=== PATIENT | female | born 1955 | race African-American/Black ===

== ENCOUNTER 2017-03-30 07:25 | Emergency (ER) | payer MEDICARE, MEDICAID ==
[~2017-03-30] VITALS: Ht 167.6 cm; Wt 103.0 kg
[~2017-03-30 07:25] MED LIST: ALLO300T2; GABA300C; GLYB5TAB4; OMEG1CAP17; SITA100T11; VALS40TA4
[2017-03-30] MEDS ORDERED: OXYCODONE HCL/ACETAMINOPHEN 5/325MG TABLET PO ONE (10:00)
[2017-03-30 11:22] VITALS: BP 132/79
== END 2017-03-30 13:56 | disposition home or self-care (01) ==
LOC: ER 07:25
DX: S40.012A Contusion of left shoulder, initial encounter (principal); S80.12XA Contusion of left lower leg, initial encounter; S10.93XA Contusion of unspecified part of neck, initial encounter; J44.9 Chronic obstructive pulmonary disease, unspecified; I10 Essential (primary) hypertension; E11.9 Type 2 diabetes mellitus without complications; J45.909 Unspecified asthma, uncomplicated; Y93.39 Activity, other involving climbing, rappelling and jumping off; Y93.89 Activity, other specified; Y92.89 Other specified places as the place of occurrence of the external cause; Y99.8 Other external cause status
CPT/HCPCS: 72125; 72170; 73030; 73552; 99284

== ENCOUNTER 2019-04-28 01:21 | Emergency (ER) | payer MEDICARE, MEDICAID ==
[~2019-04-28] VITALS: Ht 188 cm; Wt 130.9 kg
[2019-04-28 02:25] LABS: BASOPHILS % 0.9 % (0.0-2.0); EOSINOPHILS % 1.3 % (0.0-5.0); HEMATOCRIT. 35.3 % (36.0-48.0); LYMPHOCYTES % 27.1 % (20.0-50.0); MEAN CORPUSCULAR HEMOGLOBIN 30.9 pg (28.0-32.0); MEAN CORPUSCULAR VOLUME 91.2 fL (81.0-99.0); MEAN PLATELET VOLUME 10.4 fl (7.4-10.4); MONOCYTES % 11.1 % (2.0-8.0); NEUTROPHILS % 59.6 % (40.0-76.0); PLATELET 145 x1000/uL (130-400); RED BLOOD CELL COUNT 3.87 mill/uL (4.2-5.4); RED CELL DISTRIBUTION WIDTH 15.2 % (11.6-14.6)
[2019-04-28 02:31] LABS: CHLORIDE 103 mEq/L (98-107)
[2019-04-28 04:10] VITALS: BP 158/80
== END 2019-04-28 04:27 | disposition home or self-care (01) ==
LOC: ER 01:21
DX: T83.032A Leakage of nephrostomy catheter, initial encounter (principal); I12.0 Hypertensive chronic kidney disease with stage 5 chronic kidney disease or end stage renal disease; E11.22 Type 2 diabetes mellitus with diabetic chronic kidney disease; N18.6 End stage renal disease; M19.90 Unspecified osteoarthritis, unspecified site; Z99.2 Dependence on renal dialysis; Z87.891 Personal history of nicotine dependence; Z79.899 Other long term (current) drug therapy; Z79.84 Long term (current) use of oral hypoglycemic drugs
CPT/HCPCS: 36415; 74176; 83605; 99284

== ENCOUNTER 2019-08-05 12:51 | Inpatient (IN) | payer MEDICARE, MEDICAID ==
[~2019-08-05] VITALS: Ht 190.5 cm; Wt 126.6 kg
[2019-08-05] MEDS ORDERED: ALBUTEROL (0.083%) 2.5MG/3ML NEB HHN STA (13:41)
[2019-08-05] MEDS ORDERED: METHYLPREDNISOLONE SOD SUCC 125 MG/2 ML VIAL IV STA (13:41)
[2019-08-05] MEDS ORDERED: IPRATROPIUM BROMIDE (0.02%) 0.5MG/2.5ML NEB HHN STA (13:41)
[2019-08-05 14:39] LABS: HEMATOCRIT. 33.3 % (36.0-48.0); HEMOGLOBIN. 11.2 g/dL (12.0-16.0); MEAN CORPUSCULAR HEMOGLOBIN 31.8 pg (28.0-32.0); MEAN CORPUSCULAR VOLUME 94.4 fL (81.0-99.0); MEAN PLATELET VOLUME 10.8 fl (7.4-10.4); PLATELET 152 x1000/uL (130-400); RED BLOOD CELL COUNT 3.53 mill/uL (4.2-5.4)
[2019-08-05 14:45] LABS: CHLORIDE 103 mEq/L (98-107)
[2019-08-05 14:57] LABS: PLATELET ESTIMATE NORMAL
[2019-08-05] MEDS ORDERED: ASPIRIN 325MG EC TABLET PO NR (17:00)
[2019-08-05] MEDS ORDERED: ONDANSETRON HCL 4MG/2ML INJ IV PRN (17:15)
[2019-08-05] MEDS ORDERED: DOXYCYCLINE 100 MG in DEXT 5% WATER 100 ML IV NR (17:30)
[2019-08-05] MEDS ORDERED: METHYLPREDNISOLONE SOD SUCC 125 MG/2 ML VIAL IV NR (17:30)
[2019-08-05] MEDS: GUAIFENESIN 200MG/10ML SUGAR FREE UDC PO PRN (19:03)
[2019-08-05] MEDS: CLONIDINE 0.1MG TABLET PO PRN (20:17)
[2019-08-05] MEDS: ACETAMINOPHEN 325MG TABLET PO PRN (20:17)
[2019-08-05] MEDS: IPRATROPIUM/ALBUTEROL 0.5-3(2.5)MG/3ML NEB NEB SCH (20:30)
[2019-08-06] VITALS (8 sets, daily range): BP systolic 106–190; BP diastolic 57–109
[2019-08-06] MEDS: IPRATROPIUM/ALBUTEROL 0.5-3(2.5)MG/3ML NEB NEB SCH ×7 (01:54→23:17)
[2019-08-06] MEDS: METHYLPREDNISOLONE SOD SUCC 125 MG/2 ML VIAL IV SCH ×3 (01:54→12:47)
[2019-08-06] MEDS: GUAIFENESIN 200MG/10ML SUGAR FREE UDC PO PRN ×2 (01:58→13:15)
[2019-08-06] MEDS: CLONIDINE 0.1MG TABLET PO PRN (01:59)
[2019-08-06] MEDS: HYDROCODONE/ACETAMINOPHEN 5/325MG TABLET PO PRN ×2 (01:59→17:13)
[2019-08-06] MEDS ORDERED: DEXTROSE 50% WATER 50ML SYRINGE IV PRN (02:00)
[2019-08-06] MEDS ORDERED: ERGO2000 PO (02:28)
[2019-08-06] MEDS ORDERED: CARV25TA47 PO (02:28)
[2019-08-06] MEDS ORDERED: AMLO5TAB88 PO (02:28)
[2019-08-06] MEDS ORDERED: ROSU20TA2 PO (02:28)
[2019-08-06] MEDS ORDERED: FEBU40TA PO (02:28)
[2019-08-06] MEDS ORDERED: ASPI-1497 PO (02:28)
[2019-08-06] MEDS ORDERED: ESCI20TA43 PO (02:28)
[2019-08-06] MEDS ORDERED: AMLO10TA80 PO (02:28)
[2019-08-06] MEDS ORDERED: PANT40TA4 PO (02:28)
[2019-08-06] MEDS ORDERED: DOXYCYCLINE 100 MG in DEXT 5% WATER 100 ML IV SCH (05:00)
[2019-08-06] MEDS: ACETAMINOPHEN 325MG TABLET PO PRN (05:27)
[2019-08-06] MEDS: BLOOD SUGAR DIAGNOSTIC STRIP TEST SCH ×4 (06:21→21:00)
[2019-08-06] MEDS: AMLODIPINE 10MG TABLET PO SCH (06:45)
[2019-08-06 07:24] LABS: BASOPHILS % 0.2 % (0.0-2.0); HEMATOCRIT. 31.6 % (36.0-48.0); HEMOGLOBIN. 10.8 g/dL (12.0-16.0); MEAN CORPUSCULAR HEMOGLOBIN 32.2 pg (28.0-32.0); MEAN CORPUSCULAR VOLUME 94.3 fL (81.0-99.0); MEAN PLATELET VOLUME 11.3 fl (7.4-10.4); MONOCYTES % 2.2 % (2.0-8.0); NEUTROPHILS % 86.6 % (40.0-76.0); PLATELET 146 x1000/uL (130-400); RED BLOOD CELL COUNT 3.35 mill/uL (4.2-5.4); RED CELL DISTRIBUTION WIDTH 14.8 % (11.6-14.6)
[2019-08-06 07:58] LABS: CHLORIDE 102 mEq/L (98-107)
[2019-08-06 08:35] LABS: BG BASE EXCESS -6.5 mmol/L (-2.0-2.0); BG CARBOXYHEMOGLOBIN 0.3 % (0.5-1.5); BG DEOXYHEMOGLOBIN 8.6 % (0.0-5.0); BG FRACTION INSPIRED OXYGEN 21; BG HCO3 ACT 18.6 mmol/L (22.0-26.0); BG METHEMOGLOBIN 0.3 % (0.0-1.5); BG OXYGEN SATURATION 91.3 % (92.0-98.5); BG OXYHEMOGLOBIN 90.8 % (94.0-97.0); BG PCO2 35.7 mmHg (35.0-45.0); BG PH 7.335 (7.350-7.450); BG PO2 67.6 mmHg (75.0-100.0); BG SAMPLE SITE RIGHT RADIAL; BG TOTAL HEMOGLOBIN 10.6 g/dL (12.0-18.0); BG VENT MODE ROOM AIR
[2019-08-06] MEDS ORDERED: SODIUM BICARBONATE 8.4% 1 MEQ/ML 50ML SYR IV NR (08:50)
[2019-08-06] MEDS ORDERED: AMLODIPINE 5MG TABLET PO SCH (09:00)
[2019-08-06] MEDS: CARVEDILOL 12.5MG TABLET PO SCH ×2 (09:00→20:44)
[2019-08-06] MEDS: HEPARIN 5000 UNITS/ML VIAL SUBCUT SCH ×2 (09:24→20:43)
[2019-08-06] MEDS: INSULIN LISPRO 100 UNITS/ML SUBCUT SCH ×4 (09:26→22:45)
[2019-08-06] MEDS ORDERED: DEXTROSE 50% WATER 50ML SYRINGE IV NR (09:30)
[2019-08-06] MEDS ORDERED: INSULIN REGULAR (HUMULIN R) UD 100 UNITS/ML SYR IV NR (10:00)
[2019-08-06] MEDS ORDERED: PNEUMOCOCCAL 23-VAL P-SAC VAC 0.5 ML IM ONE (12:00)
[2019-08-06] MEDS ORDERED: SODIUM BICARBONATE 8.4% 1 MEQ/ML 50ML SYR IV ONE (12:38)
[2019-08-06] MEDS: ASPIRIN 81MG EC TABLET PO SCH (12:46)
[2019-08-06] MEDS: PANTOPRAZOLE 40MG DR TABLET PO SCH (12:46)
[2019-08-06 15:33] LABS: INR 0.9; PARTIAL THROMBOPLASTIN TIME 27.7 sec (23.4-31.0); PROTHROMBIN TIME 10.1 sec (9.6-11.0)
[2019-08-06] MEDS: BENZONATATE 100MG CAPSULE PO PRN ×2 (16:54→20:43)
[2019-08-06] MEDS: MONTELUKAST SODIUM 10MG TABLET PO SCH ×2 (16:54→17:00)
[2019-08-06] MEDS: FLUTICASONE PROPIONATE 50MCG/SPRAY BOTTLE BOTHNSTRLS SCH ×2 (16:54→20:45)
[2019-08-06] MEDS: METHYLPREDNISOLONE SOD SUCC 40 MG/ML VIAL IV SCH ×2 (16:54→23:45)
[2019-08-06] MEDS: GUAIFENESIN/DM 600MG/30MG ER TAB 12HR PO PRN (20:43)
[2019-08-06] MEDS: DOXYCYCLINE 100 MG in DEXT 5% WATER 100 ML IV SCH (20:44)
[2019-08-06] MEDS: AMLODIPINE 5MG TABLET PO SCH (20:45)
[2019-08-07] MEDS: IPRATROPIUM/ALBUTEROL 0.5-3(2.5)MG/3ML NEB NEB SCH ×5 (03:18→21:27)
[2019-08-07 04:04] VITALS: BP 140/58
[2019-08-07] MEDS: BLOOD SUGAR DIAGNOSTIC STRIP TEST SCH ×4 (06:55→21:46)
[2019-08-07] MEDS: PANTOPRAZOLE 40MG DR TABLET PO SCH (06:59)
[2019-08-07] MEDS ORDERED: LIDOCAINE HCL 1% 20ML VIAL (Pyxis) INJ ONE (07:47)
[2019-08-07] MEDS ORDERED: SODIUM BICARBONATE 4% (2.4MEQ) 5ML VIAL IV ONE (07:47)
[2019-08-07 08:00] VITALS: BP 163/60
[2019-08-07] MEDS: HEPARIN 5000 UNITS/ML VIAL SUBCUT SCH ×2 (09:00→21:46)
[2019-08-07] MEDS: GUAIFENESIN/DM 600MG/30MG ER TAB 12HR PO PRN ×2 (09:13→21:45)
[2019-08-07] MEDS: CARVEDILOL 12.5MG TABLET PO SCH ×2 (09:14→21:45)
[2019-08-07] MEDS: CLONIDINE 0.1MG TABLET PO PRN (09:14)
[2019-08-07] MEDS: ASPIRIN 81MG EC TABLET PO SCH (09:14)
[2019-08-07] MEDS: METHYLPREDNISOLONE SOD SUCC 40 MG/ML VIAL IV SCH ×2 (09:14→17:47)
[2019-08-07] MEDS: AMLODIPINE 10MG TABLET PO SCH (09:14)
[2019-08-07] MEDS: FLUTICASONE PROPIONATE 50MCG/SPRAY BOTTLE BOTHNSTRLS SCH (09:15)
[2019-08-07] MEDS: DOXYCYCLINE 100 MG in DEXT 5% WATER 100 ML IV SCH ×2 (09:16→21:44)
[2019-08-07] MEDS: INSULIN LISPRO 100 UNITS/ML SUBCUT SCH ×4 (09:29→21:55)
[2019-08-07] MEDS ORDERED: ALBU18HF2 IH (10:24)
[2019-08-07] MEDS ORDERED: GUAI-741 PO (10:24)
[2019-08-07] MEDS ORDERED: DOXY100C2 MT (10:24)
[2019-08-07] MEDS ORDERED: MONT10TA21 PO (10:24)
[2019-08-07] MEDS ORDERED: P50 MT (10:24)
[2019-08-07] MEDS ORDERED: UMEC62.5 INH (10:24)
[2019-08-07 12:13] VITALS: BP 126/49
[2019-08-07 12:43] LABS: HEMATOCRIT 30.9 % (36.0-48.0); HEMOGLOBIN 10.6 g/dL (12.0-16.0); MEAN CORPUSCULAR HEMOGLOBIN 31.7 pg (28.0-32.0); MEAN CORPUSCULAR VOLUME 92.8 fL (81.0-99.0); PLATELET 148 x1000/uL (130-400); RED BLOOD CELL COUNT 3.33 mill/uL (4.2-5.4); RED CELL DISTRIBUTION WIDTH 14.6 % (11.6-14.6)
[2019-08-07] MEDS: BENZONATATE 100MG CAPSULE PO PRN (15:01)
[2019-08-07] MEDS: GABAPENTIN 300MG CAPSULE PO SCH ×2 (15:01→21:44)
[2019-08-07 16:12] VITALS: BP 130/59
[2019-08-07] MEDS: MONTELUKAST SODIUM 10MG TABLET PO SCH (17:47)
[2019-08-07] MEDS: LORATADINE 10MG TABLET PO SCH (17:47)
[2019-08-07] MEDS: SODIUM CHLORIDE 45ML SPRAY NS PRN (17:54)
[2019-08-07 20:32] VITALS: BP 116/63
[2019-08-07] MEDS: BUDESONIDE 0.5MG/2ML NEB HHN SCH (21:27)
[2019-08-07] MEDS: AMLODIPINE 5MG TABLET PO SCH (21:45)
[2019-08-07] MEDS: HYDROCODONE/ACETAMINOPHEN 5/325MG TABLET PO PRN (21:46)
[2019-08-08 00:11] VITALS: BP 124/58
[2019-08-08] MEDS: IPRATROPIUM/ALBUTEROL 0.5-3(2.5)MG/3ML NEB NEB SCH ×6 (00:33→21:11)
[2019-08-08] MEDS: METHYLPREDNISOLONE SOD SUCC 40 MG/ML VIAL IV SCH ×3 (01:42→16:43)
[2019-08-08 04:00] VITALS: BP 126/63
[2019-08-08] MEDS: BLOOD SUGAR DIAGNOSTIC STRIP TEST SCH ×4 (06:22→21:46)
[2019-08-08] MEDS: GABAPENTIN 300MG CAPSULE PO SCH ×3 (06:22→21:45)
[2019-08-08] MEDS: PANTOPRAZOLE 40MG DR TABLET PO SCH (06:22)
[2019-08-08 06:46] LABS: HEMATOCRIT. 30.6 % (36.0-48.0); HEMOGLOBIN. 10.2 g/dL (12.0-16.0); LYMPHOCYTES % 8.9 % (20.0-50.0); MEAN CORPUSCULAR HEMOGLOBIN 31.1 pg (28.0-32.0); MEAN CORPUSCULAR VOLUME 92.9 fL (81.0-99.0); MEAN PLATELET VOLUME 10.6 fl (7.4-10.4); MONOCYTES % 3.3 % (2.0-8.0); NEUTROPHILS % 87.8 % (40.0-76.0); PLATELET 136 x1000/uL (130-400); RED BLOOD CELL COUNT 3.29 mill/uL (4.2-5.4); RED CELL DISTRIBUTION WIDTH 14.6 % (11.6-14.6)
[2019-08-08 08:12] VITALS: BP 117/84
[2019-08-08] MEDS: BUDESONIDE 0.5MG/2ML NEB HHN SCH ×2 (08:14→21:11)
[2019-08-08] MEDS: INSULIN LISPRO 100 UNITS/ML SUBCUT SCH ×4 (08:39→21:39)
[2019-08-08] MEDS: SEVELAMER CARBONATE 800 MG TABLET PO SCH (08:46)
[2019-08-08] MEDS: LORATADINE 10MG TABLET PO SCH (08:46)
[2019-08-08] MEDS: DOXYCYCLINE 100 MG in DEXT 5% WATER 100 ML IV SCH ×2 (11:52→21:45)
[2019-08-08] MEDS: HEPARIN 5000 UNITS/ML VIAL SUBCUT SCH ×2 (11:53→21:44)
[2019-08-08] MEDS: CARVEDILOL 12.5MG TABLET PO SCH ×2 (11:54→21:45)
[2019-08-08] MEDS: AMLODIPINE 10MG TABLET PO SCH (11:54)
[2019-08-08] MEDS: ASPIRIN 81MG EC TABLET PO SCH (11:54)
[2019-08-08 12:00] VITALS: BP 150/76
[2019-08-08] MEDS: HYDROCODONE/ACETAMINOPHEN 5/325MG TABLET PO PRN ×2 (12:34→21:45)
[2019-08-08 16:00] VITALS: BP 126/58
[2019-08-08] MEDS: MONTELUKAST SODIUM 10MG TABLET PO SCH (16:43)
[2019-08-08 20:47] VITALS: BP 166/72
[2019-08-08] MEDS: GUAIFENESIN/DM 600MG/30MG ER TAB 12HR PO PRN (21:44)
[2019-08-08] MEDS: SODIUM CHLORIDE 45ML SPRAY NS PRN (21:44)
[2019-08-08] MEDS: AMLODIPINE 5MG TABLET PO SCH (21:45)
[2019-08-09 00:13] VITALS: BP 141/63
[2019-08-09] MEDS: IPRATROPIUM/ALBUTEROL 0.5-3(2.5)MG/3ML NEB NEB SCH ×5 (01:11→16:20)
[2019-08-09] MEDS: METHYLPREDNISOLONE SOD SUCC 40 MG/ML VIAL IV SCH ×3 (01:27→15:33)
[2019-08-09 04:00] VITALS: BP 129/54
[2019-08-09] MEDS: PANTOPRAZOLE 40MG DR TABLET PO SCH (06:25)
[2019-08-09] MEDS: BLOOD SUGAR DIAGNOSTIC STRIP TEST SCH (06:25)
[2019-08-09] MEDS: GABAPENTIN 300MG CAPSULE PO SCH ×2 (06:25→15:33)
[2019-08-09 06:36] LABS: BASOPHILS % 0.1 % (0.0-2.0); HEMATOCRIT. 33.2 % (36.0-48.0); HEMOGLOBIN. 11.2 g/dL (12.0-16.0); MEAN CORPUSCULAR HEMOGLOBIN 31.4 pg (28.0-32.0); MEAN CORPUSCULAR VOLUME 92.8 fL (81.0-99.0); MEAN PLATELET VOLUME 11.8 fl (7.4-10.4); MONOCYTES % 5.5 % (2.0-8.0); NEUTROPHILS % 85.4 % (40.0-76.0); PLATELET 153 x1000/uL (130-400); RED BLOOD CELL COUNT 3.57 mill/uL (4.2-5.4); RED CELL DISTRIBUTION WIDTH 14.7 % (11.6-14.6)
[2019-08-09] MEDS: AMLODIPINE 10MG TABLET PO SCH (08:52)
[2019-08-09] MEDS: SEVELAMER CARBONATE 800 MG TABLET PO SCH (08:53)
[2019-08-09] MEDS: CARVEDILOL 12.5MG TABLET PO SCH (08:53)
[2019-08-09] MEDS: LORATADINE 10MG TABLET PO SCH (08:53)
[2019-08-09] MEDS: ASPIRIN 81MG EC TABLET PO SCH (08:53)
[2019-08-09] MEDS: HEPARIN 5000 UNITS/ML VIAL SUBCUT SCH (08:55)
[2019-08-09] MEDS: INSULIN LISPRO 100 UNITS/ML SUBCUT SCH ×3 (08:58→17:34)
[2019-08-09] MEDS: DOXYCYCLINE 100 MG in DEXT 5% WATER 100 ML IV SCH (09:04)
[2019-08-09] MEDS: BUDESONIDE 0.5MG/2ML NEB HHN SCH (09:40)
[2019-08-09 12:00] VITALS: BP 151/74
[2019-08-09 14:00] VITALS: BP 150/68
[2019-08-09] MEDS: MONTELUKAST SODIUM 10MG TABLET PO SCH (15:33)
[2019-08-09 16:00] VITALS: BP 150/68
[2019-08-09 16:32] VITALS: BP 150/68
== END 2019-08-09 19:05 | disposition home or self-care (01) | DRG 189 ==
LOC: ER 12:51 → EDBEDREQTM 17:13 → EDBEDREQ 17:13 → ENRESERV 22:56 → 6WST 08-06 01:15
PROVIDERS: ADMIT Internal Medicine; ATTEND Internal Medicine
PROC: 5A1D70Z Performance of Urinary Filtration, Intermittent, Less than 6 Hours Per Day (ICD-10-PCS; 2019-08-06)
PROC: 0JPV3XZ Removal of Tunneled Vascular Access Device from Upper Extremity Subcutaneous Tissue and Fascia, Percutaneous Approach (ICD-10-PCS; principal; 2019-08-07)
PROC: 5A1D70Z Performance of Urinary Filtration, Intermittent, Less than 6 Hours Per Day (ICD-10-PCS; 2019-08-08)
DX: J96.01 Acute respiratory failure with hypoxia (principal); N18.6 End stage renal disease; J44.1 Chronic obstructive pulmonary disease with (acute) exacerbation; I12.0 Hypertensive chronic kidney disease with stage 5 chronic kidney disease or end stage renal disease; J45.901 Unspecified asthma with (acute) exacerbation; J44.0 Chronic obstructive pulmonary disease with (acute) lower respiratory infection; J20.9 Acute bronchitis, unspecified; D64.9 Anemia, unspecified; E11.22 Type 2 diabetes mellitus with diabetic chronic kidney disease; E66.01 Morbid (severe) obesity due to excess calories; E87.5 Hyperkalemia; E11.42 Type 2 diabetes mellitus with diabetic polyneuropathy; M19.90 Unspecified osteoarthritis, unspecified site; M10.9 Gout, unspecified; Z87.891 Personal history of nicotine dependence; Z79.84 Long term (current) use of oral hypoglycemic drugs; Z79.899 Other long term (current) drug therapy; Z82.49 Family history of ischemic heart disease and other diseases of the circulatory system; Z83.3 Family history of diabetes mellitus; Z99.2 Dependence on renal dialysis
CPT/HCPCS: 36415; 36589; 36600; 71045; 80048; 80053; 82375; 82805; 82962; 83036; 83735; 83880; 84484; 85025; 85027; 87804; 93005; 94640; 97162; 99285; J1644; J1815; J2920; J2930; J3490; J7060; J7626

== ENCOUNTER 2021-04-07 20:32 | Emergency (ER) | payer BC, MEDICAID ==
[~2021-04-07] VITALS: Ht 190.5 cm; Wt 117.0 kg
[~2021-04-07 20:32] MED LIST changes: +ALBU18HF2 IH; +AMLO10TA80 PO; +AMLO5TAB88 PO; +ASPI-1497 PO; +CARV25TA47 PO; +DOXY100C5 MT; +ERGO2000 PO; +ESCI20TA37 PO; +FEBU40TA PO; +GUAI-741 PO; +MONT10TA21 PO; +P50 MT; +PANT40TA51 PO; +ROSU20TA2 PO; +UMEC62.5 INH
[2021-04-07] MEDS ORDERED: MORPHINE SULFATE 4 MG/ML CPJ (NOT FOR IM USE) IV STA (23:21)
[2021-04-07] MEDS ORDERED: SODIUM CHLORIDE 0.9% 1,000 ML IV ONE (23:30)
[2021-04-07 23:44] LABS: CHLORIDE 103 mEq/L (98-107)
[2021-04-07] MEDS ORDERED: MORPHINE SULFATE 2 MG/ML CPJ (NOT FOR IM USE) IV NR (23:45)
[2021-04-07 23:54] LABS: BASOPHILS % 0.7 % (0.0-2.0); EOSINOPHILS % 1.1 % (0.0-5.0); HEMATOCRIT. 34.2 % (36.0-48.0); HEMOGLOBIN. 11.4 g/dL (12.0-16.0); LYMPHOCYTES % 28.6 % (20.0-50.0); MEAN CORPUSCULAR HEMOGLOBIN 32.7 pg (28.0-32.0); MEAN CORPUSCULAR VOLUME 98.1 fL (81.0-99.0); MEAN PLATELET VOLUME 9.4 fl (7.4-10.4); MONOCYTES % 10.3 % (2.0-8.0); NEUTROPHILS % 59.3 % (40.0-76.0); PLATELET 202 x1000/uL (130-400); RED BLOOD CELL COUNT 3.49 mill/uL (4.2-5.4); RED CELL DISTRIBUTION WIDTH 17.4 % (11.6-14.6)
[2021-04-08 00:38] LABS: CLARITY URINE CLOUDY (CLEAR); COLOR URINE YELLOW (YELLOW); KETONES URINE TRACE (NEGATIVE); LEUKOCYTE ESTERASE URINE 3+ (NEGATIVE); NITRITE URINE NEGATIVE (NEGATIVE); OCCULT BLOOD URINE 1+ (NEGATIVE); PH URINE 7.5 (4.5-8.0); PROTEIN URINE 3+ (NEGATIVE); SPECIFIC GRAVITY URINE 1.016 (1.005-1.030)
[2021-04-08] MEDS ORDERED: CEFTRIAXONE 1 G PREMIX 50 ML IV ONE (03:00)
[2021-04-08] MEDS ORDERED: CEPH500T MT (04:18)
[2021-04-08] MEDS ORDERED: DIPH25CA83 MT (04:20)
[2021-04-08 04:30] VITALS: BP 155/53
== END 2021-04-08 05:00 | disposition home or self-care (01) ==
LOC: ER 20:32
DX: N39.0 Urinary tract infection, site not specified (principal); R94.31 Abnormal electrocardiogram [ECG] [EKG]; I51.9 Heart disease, unspecified; N18.6 End stage renal disease; Z99.2 Dependence on renal dialysis; J45.909 Unspecified asthma, uncomplicated
CPT/HCPCS: 36415; 74176; 80053; 81003; 85025; 87040; 87086; 93005; 96361; 96374; 99285; J2270; J7030

== ENCOUNTER 2022-06-25 19:47 | Emergency (ER) | payer MEDICARE, MEDICAID ==
[~2022-06-25] VITALS: Ht 188 cm; Wt 121.0 kg
[~2022-06-25 19:47] MED LIST changes: +CEPH500T MT; +DIPH25CA83 MT
[2022-06-25 20:13] VITALS: BP 121/82
[2022-06-25] MEDS ORDERED: IBUP-2029 MT (21:28)
[2022-06-25] MEDS ORDERED: CEPH500C2 MT (21:28)
[2022-06-25] MEDS ORDERED: IBUPROFEN 600MG TABLET PO ONE (21:30)
[2022-06-25] MEDS ORDERED: TETANUS, DIPHTHERIA, PERTUSSIS VAC/PF 0.5ML (>10YR OLD) IM ONE (21:30)
== END 2022-06-25 22:08 | disposition home or self-care (01) ==
LOC: ER 19:47
DX: T23.191A Burn of first degree of multiple sites of right wrist and hand, initial encounter (principal); X11.8XXA Contact with other hot tap-water, initial encounter; Y93.89 Activity, other specified; Y92.89 Other specified places as the place of occurrence of the external cause
CPT/HCPCS: 16000; 90471; 90715; 99283